=== PATIENT | female | born 1970 | race Caucasian/White ===

== ENCOUNTER 2016-03-13 07:26 | Emergency (ER) | payer SELFPAY ==
[2016-03-13] MEDS ORDERED: HYDROmorphone 1 MG INJECTION IV ONE (07:44)
[2016-03-13] MEDS ORDERED: ONDANSETRON HCL 4 MG/2 ML VIAL IV ONE (07:44)
--- NOTE | 2016-03-13 07:54 | EDPRACDOC ---
- General Information Stated Complaint: LT SIDE PAIN/NAUSEA Time Seen by Provider: 03/13/16 07:43 Information Source: Patient Home Medications: Home Medications Ciprofloxacin HCl [Cipro] 500 mg PO BID #14 tablet 06/14/15 Ondansetron [Zofran Odt] 4 mg PO Q6H PRN #15 tab.rapdis 06/14/15 Oxycodone Immediate Release [Oxycodone Immediate Release Tablet] 5 - 10 mg PO Q4H PRN #20 tab 06/14/15 Promethazine [Phenergan] 25 mg PO Q6-8H PRN #10 tab 06/14/15 Ciprofloxacin HCl [Cipro] 500 mg PO BID #20 tab 03/13/16 Hydrocodone Bit/Acetaminophen [Lortab 5/325] 1 tab PO Q6H PRN #14 tab 03/13/16 Allergies/Adverse Reactions: Allergies Allergy/AdvReac Type Severity Reaction Status Date / Time Penicillins Allergy Hives* Verified 06/14/15 11:34 - History of Present Illness Pain Began: Reports: Spontaneous Pain Location: Reports: Flank Pain Severity: Mild Pain Quality: Reports: Aching : No Oral Intake: Normal Urinary Output: Normal Relevant History of: Reports: Urolithiasis Associated Signs and Symptoms: Reports: Nausea ED Past Medical History - History Reviewed Yes Nurses notes reviewed and agree except as marked - Patient Medical History Cardiac History: Reports: Hypertension Systemic History: Denies: Cancer Surgical History: Reports: Other () - Family Medical History Denies: Diabetes (unknown-adopted) - Social Medical History Smoking Status: Never smoker EDM Review of Systems - Review of Systems ROS Negative Except as Marked: Yes All systems reviewed and were negative except as marked - Physical Exam Constitutional: Alert (Awake), No apparent distress Oriented to: Time, Person, Place Last recorded Vital Signs: Oxygen Pulse Oxygen Saturation O2 Device Oxygen Flow Rate Fraction of Inspired Oxygen ( FIO2) - HEENT Head: Normal ( normocephalic) Eye Exam: Normal (PERRL, EOMI, Sclera white) Oropharynx: Normal (Pharynx:Moist without exudate,Gums-no swelling) ENT EAC: Normal TMJ: Normal Nose: No Symptoms Reported (septum midline) Neck: Normal (FROM, trachea at midline) - Respiratory/Cardiovascular Respiratory: Normal - CTA (BBS clear to auscultation without adventitious sounds ) Cardiovascular: Normal (RRR without murmur, gallop or rub) - GI Auscultation: Normal (NABS) Palpation: Normal (Soft,No rebound or guarding, non distended) Tenderness: Non tender Humphrey's Sign: Negative - Musculoskeletal Back: Normal (Non-Tender) Extremities: Normal (Normal tone, Pulses 2+ No cyanosis or edema, FROM) - Integumentary Skin: Normal, Warm, Dry Lymphatics: Normal (no adenopathy) - Neurologic Memory Impaired: Normal Motor Function: Normal (Normal tone, Pulses 2+ No cyanosis or edema, FROM) Cranial Nerve: Normal (CN II-X11 intact sensation, strength 5/5) Cerebellar: Normal Mood Description: Normal Perception: Normal - Results 03/13/16 07:54 03/13/16 07:54 Decision Time to Discharge: 08:32 - Departure Yes I personally saw and evaluated the patient. Disposition: Home Condition: Good Final Diagnosis: LEFT URETERAL STONE, UTI, CHRONIC ANEMIA Instructions: Kidney Stones (ED), How to Strain Your Urine (ED) Education/Counseling Given To: Patient Education/Counseling Given Regarding: Diagnosis, Treatment, Prognosis Referrals: Elder Navarrete MD [Primary Care Provider] - One Week Christian Sullivan MD [Staff Physician] - One Week Prescriptions: Ciprofloxacin HCl [Cipro] 500 mg PO BID #20 tab Hydrocodone Bit/Acetaminophen [Lortab 5/325] 1 tab PO Q6H PRN #14 tab PRN Reason: Pain
[2016-03-13 07:55] VITALS: TEMP 98.1; BMI 35.9
[2016-03-13 08:07] LABS: MPV 8.1 fL (7.4-10.4)
[2016-03-13 08:18] LABS: LEUKOCYTES/URINE TRACE (NEGATIVE); NITRITE/URINE NEG (NEGATIVE); RBC/URINE TNTC (0-5); URINE OCCULT BLOOD 3+ (NEG/TRACE)
[2016-03-13] MEDS ORDERED: HYDROmorphone 1 MG INJECTION IV PRN (08:23)
[2016-03-13] MEDS ORDERED: ONDANSETRON HCL 4 MG/2 ML VIAL IV PRN (08:23)
[2016-03-13 08:31] LABS: BLOOD UREA NITROGEN 14 MG/DL (7-17); CALCIUM 8.8 MG/DL (8.4-10.2); CALCULATED OSMOLALITY 273 MOs/Kg (270-290); CHLORIDE 106 mEq/L (98-107); GLUCOSE 120 MG/DL (70-99); SODIUM LEVEL 141 mEq/L (137-146); TOTAL PROTEIN 7.3 G/DL (6.3-8.2)
[2016-03-13] MEDS ORDERED: HYDROmorphone 1 MG INJECTION ONE (08:31)
--- NOTE | 2016-03-13 08:35 | DIRPT ---
CLINICAL DATA: Left flank pain starting 5 a.m. this morning, status post appendectomy, previous stones. EXAM: CT ABDOMEN AND PELVIS WITHOUT CONTRAST TECHNIQUE: Multidetector CT imaging of the abdomen and pelvis was performed following the standard protocol without IV contrast. COMPARISON: 06/14/2015 FINDINGS: Lung bases are unremarkable. Sagittal images of the spine shows mild degenerative changes lower thoracic spine. Stable probable hemangioma T12 vertebral body. Unenhanced liver shows no biliary ductal dilatation. No calcified gallstones are noted within gallbladder. Unenhanced pancreas, spleen and adrenal glands are unremarkable. Stable right renal cyst measures 2.5 cm. There is mild left hydronephrosis and left hydroureter. Axial image 73 there is 3.5 mm calcified obstructive calculus in mid left ureter at the level of lower endplate of L4 vertebral body. There is a punctate nonobstructive calcified calculus in lower pole of the left kidney measures 2.6 mm. No aortic aneurysm. No distal ureteral calculi are noted. The urinary bladder is empty limiting its assessment. Bilateral distal ureter is unremarkable. Again noted mild enlarged uterus without definite fibroids on this unenhanced scan. No small bowel obstruction. No pericecal inflammation. No ascites or free air. No adenopathy. The patient is status post appendectomy. Again noted mild disc space flattening with posterior spurring at L5-S1 level. Mild facet degenerative changes L4 and L5 level. IMPRESSION: 1. There is mild left hydronephrosis and proximal left hydroureter. 2. There is 3.5 mm calcified obstructive calculus in mid left ureter at the level of lower endplate of L4 vertebral body. 3. Again noted 2.6 mm calcified nonobstructive calculus in lower pole of the left kidney. No right nephrolithiasis. Stable right renal cyst. 4. No small bowel obstruction. 5. No pericecal inflammation. Status post appendectomy. 6. Degenerative changes thoracic and lumbar spine. 7. Stable mild enlarged unenhanced uterus without definite discrete fibroids. Electronically Signed By: Cristofer Gonzalez M.D. On: 03/13/2016 08:32
[2016-03-13 08:42] VITALS: BP 155/77; PULSE 92
[2016-03-13 08:58] LABS: SEG NEUTROPHIL 64 % (45-76)
== END 2016-03-13 09:07 | disposition home or self-care (01) ==
LOC: ED 07:26
DX: N20.1 Calculus of ureter (principal); N39.0 Urinary tract infection, site not specified; D50.0 Iron deficiency anemia secondary to blood loss (chronic)
CPT/HCPCS: 36415; 74176; 80053; 81001; 81025; 85007; 85027; 96374; 96375; 96376; 99283; J1170; J2405